=== PATIENT | female | born 1960 | race Caucasian/White ===

== ENCOUNTER 2023-12-09 17:24 | Inpatient (IN) | payer BC, SELFPAY ==
[2023-12-09] VITALS (12 sets, daily range): BP systolic 109–154; BP diastolic 58–106; BMI 25.9; BMI 25.2
[2023-12-09 13:22] LABS: % Basophils 0.8 % (0-2); % Eosinophils 3.5 % (0-6); % Immature Granulocytes 0.3 % (0-0.5); % Lymphocytes 26.7 % (20.5-51.1); % Monocytes 7.1 % (1.7-9.3); % Neutrophils 61.6 % (42.2-75.2); Absolute Basophils 0.1 10^3/uL (0-0.2); Absolute Eosinophils 0.3 10^3/uL (0-0.7); Absolute Lymphocytes 2.3 10^3/uL (1.2-3.4); Absolute Monocytes 0.6 10^3/uL (0.1-0.6); Absolute Neutrophils 5.4 10^3/uL (1.4-6.5); Hematocrit 41.8 % (37.0-47.0); Hemoglobin 14.2 g/dL (12.0-16.0); Mean Corpuscular Hgb 30.7 pg (27.0-31.0); Mean Corpuscular Volume 90.5 fL (81.0-99.0); Mean Platelet Volume 10.6 fL (7.4-10.4); Nucleated Red Blood Cells % 0 %; Platelet Count 311 10^3/uL (130-400); Red Blood Cell Count 4.62 10^6/uL (4.20-5.40); Red Cell Dist. Width 11.7 % (11.5-14.5); White Blood Cell Count 8.8 10^3/uL (4.8-10.8)
[2023-12-09 13:31] LABS: ALT (SGPT) 56 U/L (0-35); AST (SGOT) 45 U/L (14-36); Albumin 5.1 g/dl (3.5-5.0); Alkaline Phosphatase 35 U/L (38-126); Blood Urea Nitrogen 21 mg/dl (7-17); Calcium 10.3 mg/dl (8.4-10.2); Carbon Dioxide 28 mmol/L (22-30); Estimated Creatinine Clearance 72 ml/min; Glucose 97 mg/dl (70-99); Total Bilirubin 0.5 mg/dl (0.2-1.3); eGFR > 60.00
--- NOTE | 2023-12-09 13:33 | ED.GENMED ---
History of Present Illness
General
Chief Complaint: Chest Pain
Source: patient
Exam Limitations: none
Time Seen by Provider: 12/09/23 12:45
Nursing documentation reviewed up to this point in time: agreed with
Travel History
Have you had any contact with someone who has COVID-19?: No
Do you have any symptoms of coronavirus? Fever > 100 degrees, chills, cough, shortness of breath, sore throat, loss of taste or smell, muscle aches, or headache?: No
History of Present Illness
History of Present Illness:
pt is a 63 y/o F with h/o CAD 3 stents 2 years ago
followed by RICHARD enciso
says 2 days ago she was walking from her car to the stadium at the [employer] and got exertional chest pressure. it resolved with 5 min rest.
just prior to that she had felt well without symptoms and was playing soft ball game 2 weeks ago running around without symptoms
pt says that she also had the return of th esymptom on the way back from the stadium to the car but it resolved
when she got home she took 2 SL nitro and went to slepe and felt fine
felt ok saturday until she was doing some gardening, so she took 2 SL nitro and pain resolved
today she walked on the [place] and within 5 minutes got pain
no nitro today
this was about 830 am
pt says she can feel a very subtle pressure 2/10
took baby aspirin today
no smoking
Review of Systems
Review of Systems
Allergies reviewed?: Yes
All Other Systems: Not applicable
Phy Exam
Physical Exam
Physical Exam:
GENERAL: Alert , in no apparent distress
EYE: pupils equal and reactive
NECK: Supple
ENT: o/p clr, mmm.
CARDIAC: Regular rate and rhythm .
LUNGS: Clear breath sounds bilaterally, no acute respiratory distress, no wheezes/rales/rhonchi
ABDOMEN: Soft, without focal tenderness, no r/g, no cvat, normal bowel sounds
NEUROLOGICAL: Alert and oriented, no focal neuro deficits
SKIN: Warm and dry, skin intact.
MUSCULOSKELETAL: No edema, well perfused. neg shyla's sign
PSYCH: Normal and appropriate interaction.
Scores
Heart Score for Chest Pain Patients
STEMI patient?: No
History: Highly Suspicious
ECG: Normal
Age: >45 - <65 years
Risk Factors: >/= 3 Risk Factors or History of CAD
Troponin: </= Normal Limit
Heart Score for Chest Pain Patients: 5
Heart Score Risk: 20.3% MACE over next 6 weeks
Course
Orders/Labs/Results
Orders:
Orders
12/09/23 11:08
Electrocardiogram (*1) Urgent
Reason for Study: Chest Pain
EKG- Treatment ONCE
12/09/23 13:02
Complete Blood Count/With Diff Urgent
Comprehensive Metabolic Panel Urgent
Troponin I Urgent
12/09/23 13:44
Aspirin Chewable [Low Strength Aspirin] 243 mg PO NOW STA
12/09/23 14:18
Consult Cardiology [CARDIOLOGY CONSULT] Urgent
Consulting Provider: Sherman Paulino
Was physician already notified: Yes
12/09/23 Dinner
Cholesterol Lowering
Cholesterol Lowering: Sodium, 2 Gram
12/09/23 16:51
Heparin Protocol- PTT Orders As Directed
PTT per Heparin protocol: -Obtain CBC and baseline PTT - if not already collected.
-Obtain PTT 6 hours from start of infusion. Then, every 6 hours until 2 consecutive
PTT's are therapeutic. Then, PTT Daily.
-With each rate change, obtain PTT every 6 hours until 2 consecutive PTT's are
therapeutic. Then, PTT Daily.
Notify MD As Directed
Notify physician if: PTT is greater than or equal to 200.
12/09/23 16:53
Admit/Transfer Patient As Directed
Co-Sign Provider:
Level of Care: Inpatient admission
Assign to:: IVU
Physician / Group: AUGUSTUS, Dr. Paulino
Diagnosis: Chest pain, CAD
Reason for Hospitalization: Chest pain, CAD
Expected length of stay greater than two midnights?: Yes
ELOS- Estimated Length of Stay in days: 2
I certify the patient meets the requirements for IP care: Yes
12/09/23 16:55
Code Status As Directed
Resuscitation Status: Full Code
12/09/23 17:00
Heparin 81689 Units/250 ml 25,000 units in 250 ml IV PER PROTOCOL
Weight to be used for heparin protocol in kilograms (kg):: 68.5
Protocol:: Cardiac Tx/Acute Coronary
PTT Goal Range to be used:: PTT 73 to 111 seconds
Order type:: Initial
INITIAL Infusion Dose (UNITS/KG/hr) & then follow protocol:: 12 units/kg/hr
Infusion Dose in UNITS/hr & then follow protocol (UNITS/hr):: 800
INFUSION RATE in mL/hr & then follow protocol (mL/hr):: 8
PTT less than or equal to 64 seconds:: Increase rate by 200 units/hr (+ 2 mL/hr)
PTT 64.1 to 72.9 seconds:: Increase rate by 100 units/hr (+ 1 mL/hr)
PTT 73 to 111 seconds:: Target Range. No change in rate.
PTT 111.1 to 130.9 seconds:: Decrease rate by 100 units/hr (- 1 mL/hr)
PTT 131 to 199.9 seconds:: HOLD for 1 hr. Then decrease rate by 200 units/hr (- 2 mL/hr)
PTT greater than or equal to 200 seconds:: HOLD for 2 hrs & Notify Provider. Then decrease by 200 units/hr (-
2 mL/hr)
Lab follow-up:: Each change, PTT q6h until 2 consecutive are therapeutic. Then PTT
daily.
12/09/23 19:50
Troponin I Q6H
Bisacodyl [Dulcolax] 10 mg RECTAL [id number] PRN
Budesonide/Formoterol 160/4.5 [Symbicort 160/4.5 Mcg Inhaler] 2 puff INH R BIDPRN PRN
Docusate W/Senna [Senokot-S] 1 tablet PO BIDPRN PRN
Ipratropium/Albuterol Sulfate [Duoneb] 3 ml INH R Q6HPRN PRN
Polyethylene Glycol Powder [Miralax] 17 grams PO DAILYPRN PRN
Tramadol HCl [Ultram] 50 mg PO BIDPRN PRN
12/09/23 19:50
Activity As Directed
Activity Level: Ambulate
Bathroom Privileges
Vital Signs As Directed
Frequency: Per unit guidelines
12/09/23 20:26
Cyclobenzaprine HCl [Flexeril] 5 mg PO BIDPRN PRN
12/09/23 22:00
Nebivolol HCl [Bystolic] 10 mg PO HS
12/10/23 01:50
Troponin I Q6H
12/10/23 06:00
Echo 2D MMode Color/Doppler IN AM
Reason for Study: chest pain, CAD
Cardiology Consult: Sherman Paulino
Electrocardiogram (*1) IN AM
Reason for Study: Chest Pain
Cardiology Consult: Sherman Paulino
NPO
Allow oral meds: Yes
Allow clear liquids: No
NPO with Ice Chips: No
Basic Metabolic Panel IN AM
Cardiovascular Evaluation IN AM
Complete Blood Count/No Diff IN AM
LFT [Wwldd-Loxu-Kamdewe] IN AM
Magnesium IN AM
12/10/23 07:50
Troponin I Q6H
12/10/23 08:00
Aspirin Low Dose EC [Aspir Low (Enteric Coated)] 81 mg PO DAILY
Cholecalciferol (Vitamin D3) [VITAMIN D3 (cholecalciferol)] 125 mcg PO [id number]@0800
Losartan [Cozaar] 50 mg PO DAILY
Magnesium l-Lactate [Mag-Tab Sr] 84 mg PO DAILY
12/11/23 06:00
Complete Blood Count/No Diff Q2D
Comment: Notify MD if platelet count is <130,000 or decreases by 50% from baseline
12/13/23 06:00
Complete Blood Count/No Diff Q2D
Comment: Notify MD if platelet count is <130,000 or decreases by 50% from baseline
12/15/23 06:00
Complete Blood Count/No Diff Q2D
Comment: Notify MD if platelet count is <130,000 or decreases by 50% from baseline
12/17/23 06:00
Complete Blood Count/No Diff Q2D
Comment: Notify MD if platelet count is <130,000 or decreases by 50% from baseline
12/19/23 06:00
Complete Blood Count/No Diff Q2D
Comment: Notify MD if platelet count is <130,000 or decreases by 50% from baseline
12/21/23 06:00
Complete Blood Count/No Diff Q2D
Comment: Notify MD if platelet count is <130,000 or decreases by 50% from baseline
12/23/23 06:00
Complete Blood Count/No Diff Q2D
Comment: Notify MD if platelet count is <130,000 or decreases by 50% from baseline
12/25/23 06:00
Complete Blood Count/No Diff Q2D
Comment: Notify MD if platelet count is <130,000 or decreases by 50% from baseline
Abnormal Lab Results
12/09/23
13:02
MPV 10.6 H fL
(7.4-10.4)
BUN 21 H mg/dl
(7-17)
Calcium 10.3 H mg/dl
(8.4-10.2)
AST 45 H U/L
(14-36)
ALT 56 H U/L
(0-35)
Alkaline Phosphatase 35 L U/L
(38-126)
Albumin 5.1 H g/dl
(3.5-5.0)
12/09/23 13:02
12/09/23 13:02
Vital Signs
Initial and Last Documented VS:
Initial Vital Signs
Temp Pulse Resp BP Pulse Ox
98.1 F 76 20 154/91 98
12/09/23 11:02 12/09/23 11:02 12/09/23 11:02 12/09/23 11:02 12/09/23 11:02
Last Documented Vital Signs
Temp Pulse Resp BP Pulse Ox
98.3 F 76 16 137/84 97
12/09/23 20:08 12/09/23 20:07 12/09/23 20:08 12/09/23 20:07 12/09/23 20:08
MDM/Problems Addressed
Differential Diagnosis Includes:
stable, angina, nstemi
MDM/Problems Addressed:
May Yeung 63 y/o F with h/o 3 stents 2 years ago;
here with exertional chest pain x 3 days, [facility], resolved with rest, then while gardening yesterday and resolved ith 2 SL nitro which she has never needed to take
and today she walked on treadmill for 5 minutes and had return of sypmtoms
she didn't take nitro today, this was 830 am; here says she feels subtle pressure but 1/10; vitals stable, ekg nonischemic and troponin is neg
pending cardiology consult
cards will admit for cath in AM
*Critical Care Note
Total Time (30-74mins, 75-104mins- exclusive of procedures): Not Applicable
ED Attending Note
-
Portions of this chart may have been created with voice recognition software.� Occasional wrong word or��sound alike� substitutions may have occurred due to the inherent limitations of voice recognition software.
Discharge Plan
Departure
Patient Disposition: Admit
Date of Disposition: 12/09/23
Time of Disposition: 16:32
Admit to: IVU
Admit to doctor: kieran
Presentation/result/management discussed w/ accepting MD/DO: kieran
Patient with high blood pressure during this ER visit?: No
Condition: Fair
Discharge Problem:
Stable angina
Interventions
Interventions:
*General Assessment Last Done: 12/09/23 11:02
*Neglect/Abuse Screening Last Done: 12/09/23 11:02
ED- Fall Risk Assessment Last Done: 12/09/23 16:02
*ED COVID-19 Vaccine History Last Done: 12/09/23 19:54
*Nursing Disposition Last Done: 12/09/23 19:54
ED- Cardiac Assessment Last Done: 12/09/23 16:02
Discharge Date and Time
Discharge Date/Time: 12/09/23 19:54
[2023-12-09 13:42] LABS: Troponin I < 0.012 ng/ml
[2023-12-09 13:49] LABS: Chloride 104 mmol/L (98-107); Potassium 4.6 mmol/L (3.5-5.1); Sodium 143 mmol/L (135-145)
[2023-12-09] MEDS: LOW STRENGTH ASPIRIN 243 MG PO (13:58)
--- NOTE | 2023-12-09 16:34 | CON.CAR ---
Addendum entered and electronically signed by Sherman Paulino DO 12/10/23 07:52:
I saw and examined the patient 12/09/2023 at 1600
The Occupational Therapist's note was reviewed and I agree with the note.
Comment:
Plan:
She has exertional symptoms consistent with angina and responsive to nitro
Given her hx CAD and exertional symptoms discussed cath to eval her coronary anatomy and stents which is her preference.
If she has stable anatomy she will need titration of her antianginals
Cont IV Heparin
Trend trop
Check echo
Check fasting lipids
Discussed with family at bedside and ER nursing
Original Note:
Consultation
Consultation Request
Date/Time Consultation Requested: 12/09/23
Date/Time Consultation Performed: 12/09/23
Performing Provider: Dr. Paulino
Reason for Consultation: H&P for chest pain and CAD
Medical History
-
History of Present Illness:
Patient came to [facility] today with chest pain and is now being admitted by cardiology for a cath tomorrow. Patient has a h/o CAD and had a NSTEMI that was treated at [facility] in 08/2021. Cardiac cath revealed STABLE HAND LAD along with RCA and PDA disease. Patient
had stents to RCA and PDA x2. She had a stress test 01/2022 that showed a medium sized severe mid anterior mid anteroseptal and apical defect that was reversible and EF was 60%. Patient was started on Imdur ER and Ranexa. Patient then transitioned
care to Dr. RICHARD Palacios and her Ranexa was stopped. Then at her most recent office visit 05/16/23 her Imdur ER was also stopped and she was given an Rx for NTG SL PRN chest pain. Patient was fine until this past Saturday night when she had chest pain
walking from a parking lot into [employer] for the [employer]. Once inside the stadium her pain improved, but when she walked back out to her car after the game the pain returned and lasted the whole car ride home and then she took NTG
SL at home and pain improved and she fell asleep. Patient had chest pain digging a hole in her garden yesterday and took NTG SL and pain was relieved. Patient wanted to give herself a stress test at home today so she turned up to speed and incline
on her treadmill and had chest pain. She called the cardiology office and was directed to the ER. No resting pain, but she had chest pain walking in from the parking lot.
PMH:
CAD s/p NSTEMI and 4.5 mm Promus RODRIGUE to RCA, 3.0 mm Xience to ostial PDA and 2.25 mm Xience to distal PDA and residual STABLE HAND LAD at [facility] 08/2021
HTN
Hyperlipidemia
ALBA
h/o fatty liver
Past Medical History
Past Medical History: Other (in HPI)
Past Surgical History: Appendectomy, Cardiac (RCA PCI at [facility] 08/2021), Orthopedic and Tonsilectomy
Social History
Tobacco: Non-Smoker
Alcohol: None
Drug: None
Personal:
Living: With Family
Family History
Family History: CAD and Hypertension
Allergies / Home Medications
Allergy/AdvReac Type Severity Reaction Status Date / Time
ampicillin [From Unasyn] Allergy Unknown Verified 12/09/23 11:07
niacin Allergy Unknown Verified 12/09/23 11:07
Lawlbgr-APV-PoD Reductase Allergy Unknown Verified 12/09/23 11:07
Inhibitor
sulbactam [From Unasyn] Allergy Unknown Verified 12/09/23 11:07
Review of Systems
-
History Source: Patient and Family ( sitting bedside)
All other systems: Negative unless noted
Physical Exam
Vital Signs
Temp Pulse Resp BP Pulse Ox
98.1 F 77 18 139/77 94
12/09/23 11:02 12/09/23 16:30 12/09/23 16:30 12/09/23 16:00 12/09/23 16:15
GEN: NAD. AAOx3
HEENT: EOMI, MMM
LUNGS: CTA B/L, no wheezes or rales
CV: Reg, S1/S2, no murmur
ABD: soft, BS+, NT, ND
EXT: No clubbing, cyanosis, lesions or edema B/L
NEURO: Gross non-focal
SKIN: Warm, dry and pink. No rash
Lab Results
12/09/23 13:02
12/09/23 13:02
Troponin I < 0.012 ng/ml 12/09/23 13:02
Impression / Plan
-
PCP: Dr. Nargis Obando
Cardiology: Dr. RICHARD Palacios
Impression:
Chest pain, [place]
CAD s/p NSTEMI and 4.5 mm Promus RODRIGUE to RCA, 3.0 mm Xience to ostial PDA and 2.25 mm Xience to distal PDA and residual STABLE HAND LAD at [facility] 08/2021
HTN
Hyperlipidemia
ALBA
h/o fatty liver
Plan:
-Patient came to [facility] today with chest pain and is now being admitted by cardiology for a cath tomorrow. Patient has a h/o CAD and had a NSTEMI that was treated at [facility] in 08/2021. Cardiac cath revealed STABLE HAND LAD along with RCA and PDA disease. Patient
had stents to RCA and PDA x2. She had a stress test 01/2022 that showed a medium sized severe mid anterior mid anteroseptal and apical defect that was reversible and EF was 60%. Patient was started on Imdur ER and Ranexa. Patient then transitioned
care to Dr. RICHARD Palacios and her Ranexa was stopped. Then at her most recent office visit 05/16/23 her Imdur ER was also stopped and she was given an Rx for NTG SL PRN chest pain. Patient was fine until this past Saturday night when she had chest pain
walking from a parking lot into [employer] for the [employer]. Once inside the stadium her pain improved, but when she walked back out to her car after the game the pain returned and lasted the whole car ride home and then she took NTG
SL at home and pain improved and she fell asleep. Patient had chest pain digging a hole in her garden yesterday and took NTG SL and pain was relieved. Patient wanted to give herself a stress test at home today so she turned up to speed and incline
on her treadmill and had chest pain. She called the cardiology office and was directed to the ER. No resting pain, but she had chest pain walking in from the parking lot.
-Trend Troponin
-Check echo
-Recheck LFTs in AM
-Check CVE in AM
-Cardiac cath in AM given h/o CAD and now with chest pain requiring NTG SL.
-Will start Heparin gtt now.
-Cont aspirin 81 mg daily
-ECG reviewed by me with SR and no acute ST changes
[2023-12-09 18:32] LABS: APTT 23.7 Sec (23.4-35.0)
[2023-12-09] MEDS: HEPARIN 25000 UNITS/250 ML IV (18:45)
--- NOTE | 2023-12-09 20:36 | PTCARENOTE ---
Received patient from ED, chest pain free. NSR on telemetry; Heparin infusing at 800 units/hr. Plan of care reviewed, call black in reach
[2023-12-09] MEDS: BYSTOLIC 10 MG PO (22:34)
[2023-12-10] VITALS (13 sets, daily range): BP systolic 105–140; BP diastolic 51–98
[2023-12-10 00:13] LABS: APTT 33.8 Sec (23.4-35.0)
[2023-12-10 00:27] LABS: Troponin I < 0.012 ng/ml
[2023-12-10 05:55] LABS: Hematocrit 36.6 % (37.0-47.0); Hemoglobin 12.8 g/dL (12.0-16.0); Mean Corpuscular Hgb 30.8 pg (27.0-31.0); Mean Platelet Volume 10.5 fL (7.4-10.4); Platelet Count 297 10^3/uL (130-400); Red Blood Cell Count 4.16 10^6/uL (4.20-5.40); Red Cell Dist. Width 11.7 % (11.5-14.5); White Blood Cell Count 9.1 10^3/uL (4.8-10.8)
[2023-12-10 06:11] LABS: APTT 43.5 Sec (23.4-35.0)
[2023-12-10 06:22] LABS: Troponin I < 0.012 ng/ml
[2023-12-10 06:30] LABS: ALT (SGPT) 42 U/L (0-35); AST (SGOT) 39 U/L (14-36); Albumin 4.2 g/dl (3.5-5.0); Alkaline Phosphatase 33 U/L (38-126); Blood Urea Nitrogen 15 mg/dl (7-17); Calcium 9.8 mg/dl (8.4-10.2); Carbon Dioxide 27 mmol/L (22-30); Chloride 105 mmol/L (98-107); Direct Bilirubin 0.4 mg/dl (0.0-0.4); Estimated Creatinine Clearance 72 ml/min; Glucose 90 mg/dl (70-99); HDL Cholesterol 37 mg/dl; LDL Cholesterol, Calculated 31 mg/dl; Potassium 4.3 mmol/L (3.5-5.1); Sodium 141 mmol/L (135-145); Total Bilirubin 0.4 mg/dl (0.2-1.3); Total Cholesterol 117 mg/dl (50-199); Total Protein 6.5 g/dl (6.3-8.2); Triglyceride 245 mg/dl (10-149); Very Low Density Lipoprotein 49 mg/dl (0-30); eGFR > 60.00
[2023-12-10] MEDS: COZAAR 50 MG PO (07:53)
[2023-12-10] MEDS: ASPIR LOW (ENTERIC COATED) 81 MG PO (07:53)
[2023-12-10] MEDS: MAG-TAB SR 84 MG PO (07:53)
--- NOTE | 2023-12-10 07:59 | ITS.CL.CATH ---
[employer] - Catheterization
Cardiac Catheterization
Procedure Report:
LEFT HEART CATHETERIZATION AND CORONARY INTERVENTION
Date of Procedure: December 10, 2023
Referring: Sherman Paulino DO
PROCEDURES:
1. Left heart catheterization, coronary angiogram.
2. Ultrasound-guided access
3. Successful percutaneous coronary artery intervention of a 85% hazy mid OM 1 stenosis with a 2.5 x 12 mm Xience gopi point drug-eluting stent, postdilated using a 2.5 x 12 mm NC trek balloon at 16 marya with an excellent angiographic result.
INDICATION: Ms Yeung is a 63-year-old female with past medical history of hypertension, hyperlipidemia, obstructive sleep apnea, hepatic steatosis, coronary artery disease status post NSTEMI in August 2021 managed at [facility] with
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
ACCESS:
1. Right radial artery, 6 Libyan sheath, under ultrasound guidance
HEMODYNAMICS : (mmHg)
AO (s/d) : 111/51
LV (s/d) : 135/0
LVEDP : 12
CORONARY FINDINGS
DOMINANCE: Right
LEFT MAIN: The left main artery is a large-caliber vessel which gives rise to the left into descending artery and the left circumflex artery. There is minimal luminal irregularities.
LEFT ANTERIOR DESCENDING: The left anterior descending artery is a small to medium caliber vessel which gives rise to multiple small caliber diagonal branches as it courses through the anterior interventricular groove towards the apex. There is 40%
tubular proximal LAD stenosis. There is diffuse atherosclerotic plaque in the mid LAD up to 70%. There is a subtotal occlusion in the distal LAD just distal to the takeoff of the third diagonal with competitive flow noted in the distal to apical
LAD from faint collaterals from the RCA.
CIRCUMFLEX: The left circumflex artery is a medium caliber vessel which gives rise to 1 major branching obtuse marginal branch. In the mid portion of the OM there is a 85% stenosis which is thought to be the culprit for presenting symptoms and was
intervened upon. There is mild diffuse atherosclerotic plaque in the proximal OM and mid left circumflex arteries.
RIGHT CORONARY ARTERY: The right coronary artery is a medium caliber, dominant vessel which gives rise to the right posterior descending artery and the right posterolateral system. Prior proximal RCA stent is widely patent. There is mild diffuse
atherosclerotic plaque in the mid to distal RCA. Distal RCA to RPDA stent is widely patent as is the right posterolateral stent. In the proximal portion of the right posterolateral system which is small in caliber there is tubular 40-50% stenosis
CORONARY INTERVENTION: Decision was made to move forward with percutaneous coronary artery intervention of 85% hazy mid OM which is thought to be the culprit for her presenting unstable angina. Additional heparin was given to maintain a therapeutic
ACT throughout the case. The left coronary artery was selectively engaged using a 6 Libyan EBU 3.5 guide catheter. A 190 cm 0.014' BMW coronary wire was used to navigate through the OM lesion into the distal vessel. The 85% hazy lesion was
predilated using a 2.25 x 12 mm semicompliant balloon at nominal pressure. The lesion was stented with a 2.25 x 12 mm Xience gopi point drug-eluting stent and postdilated using a 2.5 x 12 mm NC trek balloon at 16 marya with an excellent angiographic
result. Patient was loaded with 60 mg of prasugrel at the end of the case. No acute complications were noted.
SEDATION: 56 minutes of procedural sedation was utilized. An independent medical records clerk was present to assist with and help manage the patient's level of consciousness and physiologic status.
RADIATION SUMMARY: Fluoro Time (min): 9.8, Dose (mGy): 330.2, DAP (Gy.cm2) : 22.97
Closure Device: Vascular band over right radial artery, 10 cc of air
CONCLUSIONS
1. Proximal LAD has 40% tubular stenosis. Mid LAD has diffuse atherosclerotic plaque up to 90%. There is a subtotal occlusion in the distal LAD just distal to the takeoff of the third diagonal with competitive flow noted in the distal to apical
LAD from faint collaterals from the RCA.
2. Mid OM 1 has a 85% hazy stenosis which was thought to be the culprit of patient's presenting acute coronary syndrome, treated successfully percutaneously using a 2.5 x 12 mm Xience gopi point drug-eluting stent, postdilated using a 2.5 x 12 mm NC
trek balloon at 16 atmospheres with an excellent angiographic result.
3. Prior stents in the proximal RCA, distal RCA to RPDA and RPLB are widely patent. Proximal portion of the small to medium caliber RPL B has 40 to 50% tubular stenosis.
4. Normal LVEDP
RECOMMENDATIONS
1. Uninterrupted dual antiplatelet therapy with daily baby aspirin and Effient 10 mg along with high intensity statin and BB as tolerated.
2. Full echocardiogram to assess biventricular function, wall motion and rule out any significant valvular abnormalities.
3. Aggressive management of cardiovascular risk factors.
4. Wean radial band per protocol.
5. Outpatient referral for cardiac rehab
Copy to: Sherman Paulino DO, Vinay Palacios MD
Ayleen Huang MD, [facility], [facility]
--- NOTE | 2023-12-10 09:06 | PTCARENOTE ---
Assumed care of pt from night RN. Pt received awake and alert, Ox3. VSS, CM shows NSR60's, POX 98% on RA. Heparin drip infusing through RA at 1200 units/hr, next PTT due at 1230. She denies any pain or discomfort at this time. NPO since MN,
ambulating frequently in halls, awaiting CC.
--- NOTE | 2023-12-10 11:08 | CM ---
CM following for DC planning needs.
Met w/ patient at bedside to complete initial assessment.
Pt. informs that she resides w/ spouse in a private, multi level home. Pt. is functionally indep. at baseline w/ ADLs, mobility without the use of any assisted device.
Pt. has RW at home, which she does not use. Pt. also has CPAP and uses this regularly.
Pt. has RX plan and uses [facility] in [place] for prescription needs.
Anticipate DC to home once stable without any needs.
Will remain avail.
--- NOTE | 2023-12-10 12:05 | PTCARENOTE ---
Pt to CCL, Heparin drip d/c'd.
[2023-12-10 12:49] LABS: ACT-LR - POC 129 Seconds (116-155)
[2023-12-10 12:58] LABS: ACT-LR - POC 234 Seconds (116-155)
[2023-12-10 13:17] LABS: ACT-LR - POC 273 Seconds (116-155)
[2023-12-10] MEDS: VITAMIN D3 (cholecalciferol) PO (13:30)
--- NOTE | 2023-12-10 13:30 | PTCARENOTE ---
Assumed care of pt upon tsf from CCL post stent to CX. Pt arrives awake and alert, Ox3. VSS, CM shows NSR 70's, POX 95% on RA. Right radial band intact with 10 cc's in band. CMS WNL to limb, pt offers no c/o pain or discomfort. at
bedside.
--- NOTE | 2023-12-10 13:32 | CM ---
Priced Effient thru patient's RX plan: [phone]; estimated cost of Effient is $40/mo.
TT to JOVANNY to update
[2023-12-10] MEDS: NSS 1000 IV (13:49)
--- NOTE | 2023-12-10 21:08 | PTCARENOTE ---
Patient ambulating self in room. Tele monitor shows SR, HR in the 60-80's. Denies any pain or discomfort at this time. Right radial dressing intact w/ positive pulse. Educated pt about activity restrictions. Patient aware of POC, and call black in
reach.
[2023-12-10] MEDS: BYSTOLIC 10 MG PO (22:39)
[2023-12-11 04:34] VITALS: BP 117/68
[2023-12-11 04:48] LABS: Hematocrit 35.8 % (37.0-47.0); Hemoglobin 12.8 g/dL (12.0-16.0); Mean Corp Hgb Conc. 35.8 g/dL (33.0-37.0); Mean Corpuscular Hgb 31.1 pg (27.0-31.0); Mean Corpuscular Volume 87.1 fL (81.0-99.0); Mean Platelet Volume 10.3 fL (7.4-10.4); Platelet Count 294 10^3/uL (130-400); Red Blood Cell Count 4.11 10^6/uL (4.20-5.40); Red Cell Dist. Width 11.6 % (11.5-14.5); White Blood Cell Count 9.2 10^3/uL (4.8-10.8)
[2023-12-11 05:19] LABS: Blood Urea Nitrogen 17 mg/dl (7-17); Calcium 9.9 mg/dl (8.4-10.2); Carbon Dioxide 25 mmol/L (22-30); Chloride 106 mmol/L (98-107); Estimated Creatinine Clearance 72 ml/min; Glucose 100 mg/dl (70-99); Potassium 4.4 mmol/L (3.5-5.1); Sodium 140 mmol/L (135-145); eGFR > 60.00
[2023-12-11 07:24] VITALS: BP 111/64
[2023-12-11] MEDS: COZAAR 50 MG PO (08:16)
[2023-12-11] MEDS: ASPIR LOW (ENTERIC COATED) 81 MG PO (08:16)
[2023-12-11] MEDS: MAG-TAB SR 84 MG PO (08:16)
[2023-12-11] MEDS: VITAMIN D3 (cholecalciferol) 125 MCG PO (08:18)
--- NOTE | 2023-12-11 08:23 | W.PN.CARDCBS ---
Addendum entered and electronically signed by Ayleen Huang MD 12/11/23 10:17:
I saw and examined the patient.
The Criminal Justice Professor's note was reviewed and I agree with the note.
Comment: Overall patient is doing well and denies any complaints. Right radial site is stable with dressing in place. Patient has ambulated and does not have any recurrent chest discomfort or shortness of breath
Vital signs and lab work reviewed. On exam patient is well-appearing female in no acute distress, normal S1 and S2, no murmurs, rubs or gallops, abdomen is soft, nontender, nondistended with active bowel sounds, lungs are clear to auscultation
bilaterally, right radial site with dressing in place which is clean, dry and intact with no evidence of hematoma or bruit, warm extremities without significant edema
Recommendations:
1. Uninterrupted dual antiplatelet therapy with daily baby aspirin and Effient for 1 year in the setting of acute coronary syndrome status post PCI to proximal OM1 with a 2.25 by 12 mm Xience Sk[place] drug-eluting stent, postdilated with a 2.5 x 12
mm NC trek balloon at 16 marya. High intensity statin and beta-sisi as tolerated.
2. Radial artery precautions post cath per protocol.
3. Echocardiogram with preserved LV systolic function.
4. As needed sublingual nitroglycerin prescribed at the time of discharge.
5. Recommended delaying travel by at least 1 week .
6. Outpatient cardiology follow-up is already set up.
7. Outpatient referral for cardiac rehab.
Stable for discharge from a cardiac standpoint.
Ayleen Huang MD, [facility], [facility]
Original Note:
Today's Communication / Plan
-
post PCI LCx
ASA/Prasugrel uninterrupted 1 yr
stable for home today
Impression / Plan
-
PCP: Dr. Nargis Obando
Cardiology: Dr. RICHARD Palacios
Impression:
Chest pain, [place]
CAD s/p NSTEMI and 4.5 mm Promus RODRIGUE to RCA, 3.0 mm Xience to ostial PDA and 2.25 mm Xience to distal PDA and residual FI[employer] WINDER LAD at [facility] 08/2021
HTN
Hyperlipidemia
ALBA
h/o fatty liver
12/10/23 LHC:
1. Proximal LAD has 40% tubular stenosis. Mid LAD has diffuse atherosclerotic plaque up to 90%. There is a subtotal occlusion in the distal LAD just distal to the takeoff of the third diagonal with competitive flow noted in the distal to apical
LAD from faint collaterals from the RCA.
2. Mid OM 1 has a 85% hazy stenosis which was thought to be the culprit of patient's presenting acute coronary syndrome, treated successfully percutaneously using a 2.5 x 12 mm Xience gopi point drug-eluting stent, postdilated using a 2.5 x 12 mm NC
trek balloon at 16 atmospheres with an excellent angiographic result.
3. Prior stents in the proximal RCA, distal RCA to RPDA and RPLB are widely patent. Proximal portion of the small to medium caliber RPL B has 40 to 50% tubular stenosis.
4. Normal LVEDP
Plan:
post PCI LCX, no cp
rad site stable
tele SR no ectopy
Echo EF 55-60%, no WMA, or valvular disease
DAPT ASA/Effient uninterrupted 1 yr
continue nebivolol and losartan
Lipids TG 245, LDL 31 continue repatha, fenofibrate
LFT's trending down
Cardiac rehab c/s
activity restrictions reviewed, has trip to [place] on Sat to visit family
f/u Dr. Palacios in 2-4 weeks
home today
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
Subjective
Date of Service: December 11, 2023
no cp, sob, feels good
Objective
Labs:
12/11/23 04:40
12/11/23 04:40
Labs
Hgb 12.8 g/dL (12.0-16.0) 12/11/23 04:40
Hct 35.8 % (37.0-47.0) L 12/11/23 04:40
Plt Count 294 10^3/uL (130-400) 12/11/23 04:40
PT Cancelled 12/10/23 00:45
INR Cancelled 12/10/23 00:45
APTT Cancelled 12/10/23 12:35
Sodium 140 mmol/L (135-145) 12/11/23 04:40
Potassium 4.4 mmol/L (3.5-5.1) 12/11/23 04:40
BUN 17 mg/dl (7-17) 12/11/23 04:40
Creatinine 0.7 mg/dL (0.6-1.0) 12/11/23 04:40
Glucose 100 mg/dl (70-99) H 12/11/23 04:40
Troponins
12/09/23 12/09/23 12/09/23
13:02 19:50 23:52
Troponin I < 0.012 Cancelled < 0.012
12/10/23 12/10/23 12/10/23
01:50 05:40 07:50
Troponin I Cancelled < 0.012 Cancelled
Vital Signs and I&O:
Vital Signs
Temp Pulse Resp BP Pulse Ox
98 F 64 16 111/64 97
12/11/23 07:23 12/11/23 08:16 12/11/23 07:23 12/11/23 08:16 12/11/23 07:23
Vital Signs
Temp Pulse Resp BP Pulse Ox
98 F 64 16 111/64 97
12/11/23 07:23 12/11/23 08:16 12/11/23 07:23 12/11/23 08:16 12/11/23 07:23
Intake & Output
12/09/23 12/10/23 12/11/23 05/23/24
06:59 06:59 06:59 06:59
Intake Total 860 / 860
Balance 860 / 860
Physical Exam
Physical Exam
NAD, AOX3
S1, S2, RRR
CTAB, non labored
SNTND Bsx4
R rad site c/d/i no HT, good pulse
[2023-12-11] MEDS: EFFIENT 10 MG PO (09:13)
--- NOTE | 2023-12-11 09:31 | CM ---
CM following for DC planning needs.
Pt. for DC today. There are no anticipated DC needs.
PLAN: Home, no needs.
--- NOTE | 2023-12-11 10:10 | W.DS.TRANS ---
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
-
Discharge Instructions:
Discharge Diagnosis/Procedures Angioplasty and stent to Left Circumflex artery
Diet Low Cholesterol
Driving Restrictions No driving for 24 hours
Other Services Cardiac Rehab
Instructions:
Stand-Alone Forms: DC Instructions- Cath/EP Lab
Changes to Home Medications: Yes
Discharge Medications:
DC Medications w/original date entered in [employer]
Lactobacillus acidophilus 10 billion cell capsule (Probiotic) 10,000 mmu cells PO DAILY Supplement 12/09/23
acetylcysteine 600 mg capsule (NAC) 600 mg PO DAILY Supplement 12/09/23
aspirin 81 mg tablet,delayed release 81 mg PO DAILY Blood Clot Prevention/Tx 12/09/23
budesonide-formoterol HFA 160 mcg-4.5 mcg/actuation aerosol inhaler (Symbicort) 2 puff inhalation R BID PRN sob/wheezing 12/09/23
cholecalciferol (vitamin D3) 125 mcg (5,000 unit) tablet 125 mcg PO MOTUWETHFR Supplement 12/09/23
coenzyme Q10 100 mg capsule (Co Q-10) 100 mg PO DAILY Supplement 12/09/23
cyclobenzaprine 5 mg tablet 5 mg PO BID PRN muscle spasms 12/09/23
evolocumab 140 mg/mL subcutaneous pen injector (Repatha SureClick) 140 mg SC Q3W High Cholesterol 12/09/23
fenofibrate micronized 134 mg capsule 134 mg PO DAILY High Cholesterol 12/09/23
ipratropium 0.5 mg-albuterol 3 mg (2.5 mg base)/3 mL nebulization soln 3 ml inhalation R Q6 PRN sob/wheezing 12/09/23
losartan 50 mg tablet 50 mg PO DAILY Blood Pressure 12/09/23
magnesium 250 mg tablet 250 mg PO DAILY Supplement 12/09/23
milk thistle 150 mg capsule 150 mg PO DAILY Supplement 12/09/23
nebivolol 10 mg tablet 10 mg PO HS Blood Pressure 12/09/23
quercetin 500 mg capsule 500 mg PO DAILY Supplement 12/09/23
tramadol 50 mg tablet 50 mg PO BID PRN moderate pain 12/09/23
vitamin B complex 1 tab PO DAILY Supplement 12/09/23
vitamin K2 40 mcg tablet 40 mcg PO DAILY Supplement 12/09/23
nitroglycerin 0.4 mg sublingual tablet 0.4 mg sublingual [id number] PRN chest pain #25 tabs 12/11/23
prasugrel 10 mg tablet 10 mg PO DAILY #90 tabs 12/11/23
Home Medication Changes
new to prasugrel and nitro sl
Pending Results: No
[2023-12-11 10:48] VITALS: BP 129/80
--- NOTE | 2023-12-11 13:08 | PTCARENOTE ---
D/C instructions given to patient, verbalizes understanding. INT D/C'd, telemetry D/C'd, personal belongings packed and sent home with patient. D/C to home via wc accompanied by staff.
== END 2023-12-11 13:18 | disposition home or self-care (01) | DRG 322 ==
LOC: IVU 17:24
PROVIDERS: Internal Medicine Interventional Cardiology; Nurse Practitioner; Physician Assistant; Physician Assistant Medical; ADMITTING PHYSICIAN Nuclear Medicine Nuclear Cardiology; EMERGENCY PHYSICIAN Emergency Medicine; FAMILY PHYSICIAN Student in an Organized Health Care Education/Training Program
PROC: 027034Z Dilation of Coronary Artery, One Artery with Drug-eluting Intraluminal Device, Percutaneous Approach (ICD-10-PCS; 2023-12-09)
PROC: 4A023N7 Measurement of Cardiac Sampling and Pressure, Left Heart, Percutaneous Approach (ICD-10-PCS; 2023-12-09)
PROC: B2151ZZ Fluoroscopy of Left Heart using Low Osmolar Contrast (ICD-10-PCS; 2023-12-09)
PROC: B2111ZZ Fluoroscopy of Multiple Coronary Arteries using Low Osmolar Contrast (ICD-10-PCS; 2023-12-09)
DX: I25.110 Atherosclerotic heart disease of native coronary artery with unstable angina pectoris (principal); I10 Essential (primary) hypertension; E78.5 Hyperlipidemia, unspecified; G47.33 Obstructive sleep apnea (adult) (pediatric); K76.0 Fatty (change of) liver, not elsewhere classified; I25.2 Old myocardial infarction; Z79.82 Long term (current) use of aspirin; Z79.899 Other long term (current) drug therapy; Z95.5 Presence of coronary angioplasty implant and graft; Z82.49 Family history of ischemic heart disease and other diseases of the circulatory system
CPT/HCPCS: 80048; 80053; 80061; 82248; 83735; 84484; 85025; 85027; 85347; 85610; 85730; 93005; 93306; 93458; 99152; 99285; C1725; C1769; C1874; C1894; C9600; Q9967

== ENCOUNTER 2024-01-17 17:37 | Outpatient (RCR) | payer BC, SELFPAY | END 2024-01-17 23:59 | disposition home or self-care (01) | LOC: CRHB 17:37 | PROVIDERS: ATTENDING PHYSICIAN Nuclear Medicine Nuclear Cardiology | DX: I25.10 Atherosclerotic heart disease of native coronary artery without angina pectoris (principal); Z95.5 Presence of coronary angioplasty implant and graft | CPT/HCPCS: G0422; G0423 ==

== ENCOUNTER 2024-02-12 17:39 | Outpatient (RCR) | payer BC, SELFPAY | END 2024-02-12 23:59 | disposition home or self-care (01) | LOC: CRHB 17:39 | PROVIDERS: ATTENDING PHYSICIAN Internal Medicine Cardiovascular Disease; FAMILY PHYSICIAN Student in an Organized Health Care Education/Training Program | DX: I25.10 Atherosclerotic heart disease of native coronary artery without angina pectoris (principal); Z95.5 Presence of coronary angioplasty implant and graft | CPT/HCPCS: G0422; G0423 ==

== ENCOUNTER 2024-03-18 17:40 | Outpatient (RCR) | payer BC, SELFPAY | END 2024-03-18 23:59 | disposition home or self-care (01) | LOC: CRHB 17:40 | PROVIDERS: ATTENDING PHYSICIAN Internal Medicine Cardiovascular Disease; FAMILY PHYSICIAN Student in an Organized Health Care Education/Training Program | DX: I25.10 Atherosclerotic heart disease of native coronary artery without angina pectoris (principal); Z95.5 Presence of coronary angioplasty implant and graft | CPT/HCPCS: 93798 ==

== ENCOUNTER 2024-04-20 16:26 | Outpatient (RCR) | payer BC, SELFPAY | END 2024-04-20 23:59 | disposition home or self-care (01) | LOC: CRHB 16:26 | PROVIDERS: ATTENDING PHYSICIAN Internal Medicine Cardiovascular Disease; FAMILY PHYSICIAN Student in an Organized Health Care Education/Training Program | DX: I25.10 Atherosclerotic heart disease of native coronary artery without angina pectoris (principal); Z95.5 Presence of coronary angioplasty implant and graft | CPT/HCPCS: 93798 ==

== ENCOUNTER 2024-05-04 17:30 | Outpatient (RCR) | payer BC, SELFPAY | END 2024-05-04 23:59 | disposition home or self-care (01) | LOC: CRHB 17:30 | PROVIDERS: ATTENDING PHYSICIAN Internal Medicine Cardiovascular Disease; FAMILY PHYSICIAN Student in an Organized Health Care Education/Training Program | DX: I25.10 Atherosclerotic heart disease of native coronary artery without angina pectoris (principal); Z95.5 Presence of coronary angioplasty implant and graft | CPT/HCPCS: 93797; 93798 ==